=== PATIENT | male | born 1990 | race Caucasian/White ===

== ENCOUNTER 2019-09-04 12:58 | Emergency (ER) | payer BC, OTHER ==
--- NOTE | 2019-09-04 13:12 | EDM.PDOC ---
ED HPI GENERAL MEDICAL PROBLEM - General Chief Complaint: Genitourinary Problem Stated Complaint: N/A Time Seen by Provider: 09/04/19 13:05 - History of Present Illness INITIAL COMMENTS - FREE TEXT/NARRATIVE: HISTORY AND PHYSICAL: History of present illness: Patient is a 29-year-old white male sensory concern of left testicular pain and swelling this began on Monday got somewhat progressively worse he denies urethral discharge he states he has had some discomfort with urination he denies penile lesions he denies high-risk behavior denies history of prior STD denies trauma Review of systems: As per history of present illness and below otherwise all systems reviewed and negative. Past medical history: As per history of present illness and as reviewed below otherwise noncontributory. Surgical history: As per history of present illness and as reviewed below otherwise noncontributory. Social history: No reported history of drug or alcohol abuse. Family history: As per history of present illness and as reviewed below otherwise noncontributory. Physical exam: HEENT: Atraumatic, normocephalic, pupils reactive, negative for conjunctival pallor or scleral icterus, mucous membranes moist, throat clear, neck supple, nontender, trachea midline. Lungs: Clear to auscultation, breath sounds equal bilaterally, chest nontender. Heart: S1S2, regular, negative for clicks, rubs, or JVD. Abdomen: Soft, nondistended, nontender. Negative for masses or hepatosplenomegaly. Negative for costovertebral tenderness. Pelvis: Stable nontender. Genitourinary: Patient has a large tender swollen left testicle there is no transverse lie noted there is some epididymal tenderness. No penile lesions noted no urethral discharge no obvious hernia Rectal: Deferred. Extremities: Atraumatic, negative for cords or calf pain. Neurovascular unremarkable. Neuro: Awake, alert, oriented. Cranial nerves II through XII unremarkable. Cerebellum unremarkable. Motor and sensory unremarkable throughout. Exam nonfocal. Diagnostics: UA urine for GC chlamydia testicular ultrasound Therapeutics: None Impression: #1 left testicular pain/swelling Definitive disposition and diagnosis as appropriate pending reevaluation and review of above. left testicle Pain Score (Numeric/FACES): 8 - Related Data Allergies Allergy/AdvReac Type Severity Reaction Status Date / Time poison swati extract Allergy Cannot Verified 09/04/19 13:06 [Poison Swati Extract] Remember Home Meds: Home Meds . [No Known Home Meds] 06/23/14 [History] Past Medical History - Past Health History Medical/Surgical History: Denies Medical/Surgical History ED ROS GENERAL - Review of Systems Review Of Systems: Comprehensive ROS is negative, except as noted in HPI. ED EXAM, GENERAL - Physical Exam Exam: See Below (See dictation) Course - Vital Signs Last Recorded V/S: Last Vital Signs Temp 36.0 C 09/04/19 13:07 Pulse 106 H 09/04/19 13:07 Resp 16 09/04/19 13:07 BP 126/70 09/04/19 13:07 Pulse Ox 96 09/04/19 13:07 - Orders/Labs/Meds Orders: Active Orders 24 hr Category Date Time Status CHLAMYDIA AND GONORRHEA BY TMA Stat Lab 09/04/19 13:18 Received CULTURE URINE [RM] Stat Lab 09/04/19 13:06 Received Labs: Laboratory Tests 09/04/19 Range/Units 13:06 Urine Color YELLOW Urine Appearance SLT CLOUDY Urine pH 5.0 (5.0-8.0) Ur Specific [place] >= 1.030 (1.001-1.035) Urine Protein 30 H (NEGATIVE) mg/dL Urine Glucose (UA) NEGATIVE (NEGATIVE) mg/dL Urine Ketones NEGATIVE (NEGATIVE) mg/dL Urine Occult Blood TRACE-INTACT H (NEGATIVE) Urine Nitrite POSITIVE H (NEGATIVE) Urine Bilirubin MODERATE H (NEGATIVE) Urine Ictotest NEGATIVE Urine Urobilinogen 0.2 (<2.0) EU/dL Ur Leukocyte Esterase TRACE H (NEGATIVE) Urine RBC 0-3 (0-2/HPF) Urine WBC 20-30 (0-5/HPF) Ur Epithelial Cells RARE (NONE-FEW) Urine Bacteria 2+ H (NEGATIVE) Urine Mucus LIGHT (NONE-MOD) Urinalysis Comment Departure - Departure Time of Disposition: 15:20 Disposition: Home, Self-Care 01 Condition: Good Clinical Impression: Orchitis of left testicle - Discharge Information Referrals: PCP,None [Primary Care Provider] - Forms: ED Department Discharge Additional Instructions: The following information is given to patients seen in the emergency department who are being discharged to home. This information is to outline your options for follow-up care. We provide all patients seen in our emergency department with a follow-up referral. The need for follow-up, as well as the timing and circumstances, are variable depending upon the specifics of your emergency department visit. If you don't have a primary care physician on staff, we will provide you with a referral. We always advise you to contact your personal physician following an emergency department visit to inform them of the circumstance of the visit and for follow-up with them and/or the need for any referrals to a consulting specialist. The emergency department will also refer you to a specialist when appropriate. This referral assures that you have the opportunity for followup care with a specialist. All of these measure are taken in an effort to provide you with optimal care, which includes your followup. Under all circumstances we always encourage you to contact your private physician who remains a resource for coordinating your care. When calling for followup care, please make the office aware that this follow-up is from your recent emergency room visit. If for any reason you are refused follow-up, please contact the [facility] emergency department at and asked to speak to the emergency department charge nurse. [facility] - Urology [address] [place] [id number] Doxycycline as prescribed follow-up urology clinic above call to schedule appointment return as needed as discussed - My Orders Last 24 Hours: My Active Orders 09/04/19 13:06 CULTURE URINE [RM] Stat 09/04/19 13:18 CHLAMYDIA AND GONORRHEA BY TMA Stat - Assessment/Plan Last 24 Hours: My Active Orders 09/04/19 13:06 CULTURE URINE [RM] Stat 09/04/19 13:18 CHLAMYDIA AND GONORRHEA BY TMA Stat
--- NOTE | 2019-09-04 14:19 | US ---
EXAM DATE: 09/04/19 PATIENT'S AGE: 29 Testicular ultrasound: Multiple real-time images of the testicles were obtained. Testicles have a homogeneous ultrasound appearance. Both arterial and venous blood flow are seen. Epididymal cyst is noted on the right side measuring 1.3 cm. No hydrocele is seen. Measurements: Right testicle: 4.4 x 2.4 x 2.5 cm Left testicle: 4.6 x 2.9 x 3.4 cm Impression: 1. Epididymal cyst on the right side. 2. No additional abnormality is seen on testicular ultrasound exam. Diagnostic code #1 This report was dictated in [place] Standard Time Report Signed by Proxy. [id number]
[2019-09-04] MEDS ORDERED: cefTRIAXone 1 GM in Lidocaine 1% 4 ML IM ONE (15:20)
== END 2019-09-04 16:11 | disposition home or self-care (01) ==
LOC: MW.ED 12:58
DX: N45.2 Orchitis (principal); Z91.048 Other nonmedicinal substance allergy status
CPT/HCPCS: 76870; 81001; 87086; 87491; 87591; 93976; 96372; 99284; J0696; J2001